=== PATIENT | female | born 1970 | race African-American/Black ===

== ENCOUNTER 2017-11-23 21:19 | Emergency (ER) | payer OTHER ==
[~2017-11-23] VITALS: Ht 182.9 cm; Wt 100.0 kg
[~2017-11-23 21:19] MED LIST: NAPROXEN; NORVASC; ROBAXIN; ULTRAM; VICODIN
[2017-11-23] MEDS ORDERED: SODIUM CHLORIDE 0.9% 1,000 ML IV ONE (22:07)
[2017-11-23] MEDS ORDERED: ONDANSETRON HCL 4MG/2ML VIAL IV STA (22:07)
[2017-11-23] MEDS ORDERED: KETOROLAC 30MG/ML VIAL IV STA (22:07)
[2017-11-23 22:36] LABS: CLARITY URINE CLEAR (CLEAR); COLOR URINE YELLOW (YELLOW); KETONES URINE NEGATIVE (NEGATIVE); LEUKOCYTE ESTERASE URINE NEGATIVE (NEGATIVE); NITRITE URINE NEGATIVE (NEGATIVE); OCCULT BLOOD URINE 1+ (NEGATIVE); PH URINE 6.5 (4.5-8.0); PROTEIN URINE NEGATIVE (NEGATIVE); SPECIFIC GRAVITY URINE 1.009 (1.005-1.030)
[2017-11-23 22:45] LABS: *AMPHETAMINES SCREEN URINE NEGATIVE (NEGATIVE); *BARBITURATES SCREEN URINE NEGATIVE (NEGATIVE); *BENZODIAZEPINES SCREEN URINE NEGATIVE (NEGATIVE); *COCAINE SCREEN URINE NEGATIVE (NEGATIVE); CANNABINOID URINE SCREEN NEGATIVE (NEGATIVE); METHADONE URINE SCREEN NEGATIVE (NEGATIVE); OPIATES URINE SCREEN NEGATIVE (NEGATIVE); PHENCYCLIDINE URINE SCREEN NEGATIVE (NEGATIVE)
[2017-11-23 22:45] LABS: BASOPHILS % 0.3 % (0.0-2.0); EOSINOPHILS % 1.8 % (0.0-5.0); HEMOGLOBIN. 13.1 g/dL (12.0-16.0); MEAN CORPUSCULAR HEMOGLOBIN 29.4 pg (28.0-32.0); MEAN CORPUSCULAR VOLUME 87.3 fL (81.0-99.0); MONOCYTES % 6.9 % (2.0-8.0); PLATELET 275 x1000/uL (130-400); RED BLOOD CELL COUNT 4.47 mill/uL (4.2-5.4); RED CELL DISTRIBUTION WIDTH 13.3 % (11.6-14.6)
[2017-11-23 22:51] LABS: CHLORIDE 103 mEq/L (98-107)
[2017-11-23 22:54] LABS: PROTHROMBIN TIME 10.7 sec (9.4-11.6)
[2017-11-23 22:56] LABS: ETHANOL BLOOD < 10 mg/dL
[2017-11-23 22:59] LABS: HCG SCREEN NEGATIVE
[2017-11-24] MEDS ORDERED: METRONIDAZOLE 500 MG PREMIX 100 ML IV NR (00:15)
[2017-11-24] MEDS ORDERED: LEVOFLOXACIN 750MG PREMIX 150 ML IV NR (00:15)
[2017-11-24] MEDS ORDERED: KETOROLAC 30MG/ML VIAL IV STA (04:04)
[2017-11-24 05:03] VITALS: BP 140/85
== END 2017-11-24 05:08 | disposition home or self-care (01) ==
LOC: ER 21:19
DX: K57.92 Diverticulitis of intestine, part unspecified, without perforation or abscess without bleeding (principal); R10.9 Unspecified abdominal pain; I10 Essential (primary) hypertension; I25.2 Old myocardial infarction
CPT/HCPCS: 36415; 71045; 74176; 80053; 80305; 81003; 83605; 83690; 84703; 85025; 85610; 87040; 93005; 96361; 96365; 96366; 96368; 96375; 99285; G0482; J1885; J1956; J2405; J3490; J7030

== ENCOUNTER 2019-07-27 08:42 | Emergency (ER) | payer OTHER ==
[~2019-07-27] VITALS: Ht 182.9 cm; Wt 83.0 kg
[2019-07-27 09:35] VITALS: BP 155/98
[2019-07-27 11:40] LABS: CLARITY URINE CLEAR (CLEAR); COLOR URINE YELLOW (YELLOW); KETONES URINE NEGATIVE (NEGATIVE); LEUKOCYTE ESTERASE URINE NEGATIVE (NEGATIVE); NITRITE URINE NEGATIVE (NEGATIVE); OCCULT BLOOD URINE TRACE (NEGATIVE); PROTEIN URINE NEGATIVE (NEGATIVE); SPECIFIC GRAVITY URINE 1.022 (1.005-1.030); UROBILINOGEN URINE 0.2 E.U./dL (0.2-1.0)
[2019-07-27] MEDS ORDERED: HYDROCODONE/ACETAMINOPHEN 5/325MG TABLET PO STA (13:04)
[2019-07-27 13:16] LABS: BASOPHILS % 0.6 % (0.0-2.0); EOSINOPHILS % 0.6 % (0.0-5.0); HEMATOCRIT. 48.3 % (36.0-48.0); HEMOGLOBIN. 16.3 g/dL (12.0-16.0); LYMPHOCYTES % 20.6 % (20.0-50.0); MEAN CORPUSCULAR HEMOGLOBIN 30.3 pg (28.0-32.0); MEAN CORPUSCULAR VOLUME 89.8 fL (81.0-99.0); MEAN PLATELET VOLUME 9.7 fl (7.4-10.4); MONOCYTES % 4.8 % (2.0-8.0); NEUTROPHILS % 73.4 % (40.0-76.0); PLATELET 291 x1000/uL (130-400); RED BLOOD CELL COUNT 5.38 mill/uL (4.2-5.4); RED CELL DISTRIBUTION WIDTH 13.6 % (11.6-14.6)
[2019-07-27 13:25] LABS: CHLORIDE 106 mEq/L (98-107)
[2019-07-27 13:33] LABS: CREATINE KINASE 134 IU/L (26-192)
== END 2019-07-27 14:49 | disposition home or self-care (01) ==
LOC: ER 08:42
DX: M25.511 Pain in right shoulder (principal); M79.18 Myalgia, other site
CPT/HCPCS: 36415; 71045; 73030; 80053; 81003; 82550; 84484; 85025; 93005; 99285